=== PATIENT | female | born 1965 | race Caucasian/White ===

== ENCOUNTER 2016-04-25 20:56 | Emergency (ER) | payer OTHER ==
[~2016-04-25] VITALS: Ht 160 cm; Wt 84.1 kg
[2016-04-25 21:21] VITALS: BP 110/77; PULSE 77; RESP 16; TEMP 98.6; O2SAT 98
[2016-04-25] MEDS ORDERED: MELO-1 PO (21:43)
[2016-04-25] MEDS ORDERED: ESTR1 PO (21:43)
--- NOTE | 2016-04-25 21:56 | PD ---
HPI Chief Complaint: Bite or Sting Time Seen by Provider: 21:56 Travel History International Travel<30 days: No Contact w/Intl Traveler<30days: No Traveled to known affect area: No History of Present Illness HPI Patient is a 50-year-old female presenting with dog bite to the right hand. Approximately 2 hours prior to exam she was walking her small dog when a neighbor's large dog got loose and intact. The patient intervened and is not sure which dog bit her. She has lacerations to the second for digits of the right hand, her dominant hand. She denies loss of range of motion, weakness or paresthesias. Hemostasis achieved. She did cleanse the wounds with soap and water. Last tetanus vaccine greater than 5 years. She denies any diabetes or immunocompromise states. She states that she did fall and twist her left ankle has some pain laterally. Some bruising on the proximal Left calf as well. She has been weightbearing and denies any loss of range of motion. The police were called and a complaint was filed. The dog will be available for testing. Her dog is fully vaccinated. PFSH Past Medical History Arthritis: Yes Cancer: Yes (REMISSION BREAST) Diminished Hearing: Yes ([employer]) Diverticulitis: Yes Tetanus Vaccination: > 5 Years Influenza Vaccination: Yes ?: Not Past Surgical History Section: Yes Gynecologic Surgery: Yes (OFERECTOMY) Tonsillectomy: Yes Other Surgery: Yes (BILATERAL MASTECTOMY WITH IMPLANT PLACEMENT) Social History Alcohol Use: Yes (SOCIAL) Tobacco Use: No Substance Use: No Allergies-Medications (Allergen,Severity, Reaction): Coded Allergies: Amoxicillin (Verified Allergy, Severe, Rash, 04/25/16) Gluten (Verified Allergy, Severe, Rash, 04/25/16) Red Dyes - Various (Verified Allergy, Severe, Rash, 04/25/16) Reported Meds & Prescriptions Reported Meds & Active Scripts Active Lortab (Hydrocodone-Acetaminophen) 7.5-325 Mg Tab 1 Tab PO Q4H PRN Clindamycin (Clindamycin HCl) 300 Mg Cap 300 Mg PO Q6H 10 Days Bactrim DS (Sulfamethoxazole-Trimethoprim) 800-160 Mg Tab 1 Tab PO BID Reported Meloxicam 15 Mg Tab 15 Mg PO DAILY Estrace (Estradiol) 1 Mg Tab 1 Mg PO DAILY Review of Systems Except as stated in HPI: all other systems reviewed are Neg Physical Exam Narrative GENERAL: Well-developed and well-nourished adult female in no acute distress. SKIN: Warm and dry. Good turgor without tenting. HEAD: Normocephalic and atraumatic. EYES: PERRL bilaterally, 5mm. EOMI bilaterally. No injection or icterus present. No proptosis. Lids without edema or erythema. CARDIOVASCULAR: Regular rate and rhythm without murmurs, rubs, clicks or gallops. Radial and posterior tibial pulses 2+ bilaterally. Capillary refill less than 2 seconds whistle-tip of all fingers of right hand. No pedal edema. RESPIRATORY: Clear to auscultation bilaterally with symmetrical rise and fall, no distress or use of accessory muscles. MUSCULOSKELETAL: Multiple lacerations and puncture wounds to the second and fourth digits of the right hand. These do appear relatively shallow and hemostasis is achieved. No visible bone or tendon or foreign bodies. No edema or ecchymosis. Patient has normal range of motion in the digits in flexion and extension. No specific point tenderness. Left ankle does have some mild edema and point tenderness over the anterior talofibular ligament but no bony tenderness over the medial and lateral malleoli. No tenderness over the navicular bone and fifth metatarsal. Normal range of motion in the left ankle. No point tenderness with palpation of the left tib-fib, left knee normal range of motion in the left knee. Patient freely moving all four extremities spontaneously. Extremities without clubbing or cyanosis. No obvious deformities. NEUROLOGIC: CN II-XII grossly intact. Awake and alert. Strength 5/5 in flexion and extension of the second for digits of the right hand even with isolation the individual IP joints. Sensation intact to the distal tip of all digits of the right hand. Normal speech. PSYCHIATRIC: Appropriate mood and affect; insight and judgment normal. Data Data Last Documented VS Vital Signs Date Time Temp Pulse Resp B/P Pulse Ox O2 Delivery O2 Flow Rate FiO2 04/25/16 21:21 98.6 77 16 110/77 98 Room Air Orders Hand, Complete ([id number]) (04/25/16 21:54) Ice/Cold Pack (04/25/16 21:54) Tetanus/Diphtheria Tox Adult (Tetanus/Di (04/25/16 22:00) Sulfamet-Trimeth Ds 800-160 Mg (Bactrim (04/25/16 22:00) Clindamycin (Cleocin) (04/25/16 22:00) Bupivacaine Pf 0.5% Inj (Marcaine Pf 0.5 (04/25/16 22:15) Lidocaine 1% Inj (50 Ml) (Xylocaine 1% I (04/25/16 22:15) Splint Or Brace Apply/Monitor (04/25/16 22:11) MDM Medical Decision Making Medical Screen Exam Complete: Yes Emergency Medical Condition: Yes Interpretation(s) Last 24 hours Impressions Hand X-Ray 04/25/162153 Signed Impressions: Service Date/Time: Monday, April 25, 2016 22:16 - CONCLUSION: 1. No acute findings. No radiopaque foreign body. Krishna Orellana MD Differential Diagnosis Dog bite fingers versus finger lacerations versus tendon injury versus crush injury versus neurovascular injury unlikely versus ankle sprain Narrative Course Patient is a 50-year-old female presenting with a dog bite to the second for digits of the right hand. This occurred approximately 1 1/2-2 hours prior to arrival. Tetanus vaccine is updated today. She is neurovascularly intact with normal range of motion. Ordered x-ray of the hand which shows no evidence of fracture or foreign body. Patient has left ankle sprain, no imaging warranted per [place] ankle rules. Performed digital block achieved anesthesia and was worked cleansed and irrigated per attached procedure narrative. Dressings applied. Patient is given Bactrim and clindamycin here per up-to-date alternative regimen given penicillin allergy. Please were here and before was filed and the dog will be tested, no rabies prophylaxis indicated. Recommended following up with an specialist tomorrow.See discharge paperwork for further instructions. The plan was discussed with the patient who acknowledged their understanding and agreement. Reinforced the follow-up with primary care is critically important. Patient instructed on emergent conditions that should prompt return to ED. Procedures Procedure Narrative Wound irrigation Perform digital block the second and fourth fingers of the right hand with a 50- 50 mix of 0.5% mepivacaine and 1% lidocaine. Injected 2.5 cc in the second digit and 3 cc fourth digit. Complete anesthesia was achieved. Wounds were cleansed with iodine and scrubbed to remove dried blood. There were no visible foreign bodies. No evidence of bony injury, tendon or neurovascular injury. Irrigated each finger with 500 cc of sterile saline. Wounds were dressed with sterile dressing. Patient tolerated the procedure well. Diagnosis Primary Impression: Dog bite of right hand without complication Qualified Code: S61.451A - Dog bite of right hand without complication, initial encounter Additional Impression: Left ankle sprain Qualified Code: S93.492A - Sprain of other ligament of left ankle, initial encounter Referrals: Keegan Bass III, MD,Leslie Rodriguez MD Patient Instructions: Animal Bite (ED), Ankle Sprain (ED), Ankle Sprain Exercises (GEN), General Instructions, Laceration Without Closure (ED) Additional Instructions: Keep bandage on for 24 hours then change daily When changing bandage wash area with soap and water Avoid swimming or submerging wound in any water(bath, samson, pool, ocean, etc) Take medications as prescribed Apply ice to ankle as needed for pain and swelling Follow-up with PCP in 2-3 days for the ankle, recommend calling hand surgeon tomorrow for follow-up appointment in 1-2 days Return to the ED for any acute worsening of symptoms including swelling, warmth , spreading redness, pustular drainage, fever Med/Other Pt SpecificInfo: Prescription(s) given Scripts Hydrocodone-Acetaminophen (Lortab)7.5-325 Mg Tab1 Tab PO Q4H PRN (PAIN) #15 TAB Ref 0 Prov:Luis Flores MD 04/25/16 Clindamycin 300 Mg [id number] Mg PO Q6H 10 Days Prov:Luis Flores MD 04/25/16 Sulfamethoxazole-Trimethoprim (Bactrim DS)800-160 Mg Tab1 Tab PO BID #20 TAB Prov:Luis Flores MD 04/25/16 Disposition: 01 DISCHARGE HOME Condition: Sherif Jules III Apr 25, 2016 21:56
[2016-04-25] MEDS ORDERED: TETANUS/DIPHTHERIA TOXOID ADULT 0.5 ML VIAL IM ONE (22:00)
[2016-04-25] MEDS: SULFAMETHOXAZOLE-TRIMETHOPRIM DS 800-160 MG TAB PO ONE ×2 (22:02→23:10)
[2016-04-25] MEDS: CLINDAMYCIN 150 MG CAP PO ONE ×2 (22:02→23:10)
[2016-04-25] MEDS ORDERED: LIDOCAINE HCL 1% 50 ML VIAL INFIL ONE (22:15)
[2016-04-25] MEDS ORDERED: BUPIVACAINE HCL PF 0.5% 10 ML VIAL INFIL ONE (22:15)
[2016-04-25] MEDS ORDERED: CLIN1CAP6 PO ×2 (22:44→23:21)
[2016-04-25] MEDS ORDERED: BACT800T5 PO ×2 (22:44→23:21)
--- NOTE | 2016-04-25 22:48 | RADHPO ---
EXAM DATE/TIME: 04/25/2016 22:16 [facility] COMPARISON: No previous studies available for comparison. INDICATIONS : Dog bite right and, 2 &4 digits MEDICAL HISTORY : None. SURGICAL HISTORY : None. ENCOUNTER: Initial ACUITY: 1 day PAIN SCORE: 6/10 LOCATION: Right 2 nd and 4th digits FINDINGS: Three view examination of the right hand demonstrates no acute fracture or dislocation. Benign-appear ing sclerotic change at the fifth metacarpal. CONCLUSION: 1. No acute findings. No radiopaque foreign body. Krishna Orellana MD on April 25, 2016 at 22:45 Board Certified Radiologist. This report was verified electronically.
[2016-04-25] MEDS ORDERED: HYDR-3534 PO (22:57)
== END 2016-04-25 23:30 | disposition home or self-care (01) ==
LOC: PHEFT 20:56
DX: S61.250A Open bite of right index finger without damage to nail, initial encounter (principal); S61.254A Open bite of right ring finger without damage to nail, initial encounter; S93.492A Sprain of other ligament of left ankle, initial encounter; H91.90 Unspecified hearing loss, unspecified ear; Z23 Encounter for immunization; Z87.39 Personal history of other diseases of the musculoskeletal system and connective tissue; Z85.3 Personal history of malignant neoplasm of breast; Z87.19 Personal history of other diseases of the digestive system; W54.0XXA Bitten by dog, initial encounter; W18.39XA Other fall on same level, initial encounter; Y93.K1 Activity, walking an animal
CPT/HCPCS: 64450; 73130; 90471; 90714

== ENCOUNTER → 2017-05-09 | Outpatient (CLI) | payer OTHER ==
[~2017-05-09] MED LIST: BACT800T5 PO; CLIN300C5 PO; ESTR1 PO; HYDR-3534 PO; MELO15TA20 PO
== END ==
LOC: PLAB 13:01
PROVIDERS: ATTEND Internal Medicine Gastroenterology
DX: K29.70 Gastritis, unspecified, without bleeding (principal)
CPT/HCPCS: 87338